=== PATIENT | male | born 2000 | race Caucasian/White ===

== ENCOUNTER 2022-12-30 09:37 | Emergency (ER) | payer BC | END 2022-12-30 10:27 | disposition home or self-care (01) | LOC: MW.ED 09:37 | DX: K04.7 Periapical abscess without sinus (principal) | CPT/HCPCS: 99282 ==

== ENCOUNTER 2023-03-14 14:30 | Emergency (ER) | payer BC | END 2023-03-14 16:45 | disposition home or self-care (01) | LOC: MW.ED 14:30 | DX: K04.7 Periapical abscess without sinus (principal) | CPT/HCPCS: 99283 ==